=== PATIENT | female | born 1950 | race Caucasian/White ===

== ENCOUNTER 2017-10-17 19:33 | Observation (INO) | payer OTHER ==
[~2017-10-17] VITALS: Ht 152.4 cm; Wt 74.1 kg
[~2017-10-17 19:33] MED LIST: ACIPHEX20 MG PO; ADVAIR 500-501 EACH IH; ADVAIR 500/501 DISK IH; ALPRAZOLAM ER0.5 MG PO; ALPRAZOLAM ER1 MG PO; AMOX TR-K CLV1 EAC4 PO; CITRACAL + D E1 EACH PO; CLARITIN,ALAVAR10 MG PO; CLONAZEPAM0.5 MG PO; FLONASE16 G1 BOTH NARES; FLONASE16 GM NS; GLUCOSAMINE &1 EAC1 PO; LOVASTATIN40 MG PO; MOBIC15 MG PO; MULTIVITAMIN1 EAC2 PO; NAPROSYN500 MG PO; NEXIUM20 MG PO; NEXIUM40 MG PO; PROVENTIL,2.5 MG/3 M IH; PROZAC40 MG PO; RECLAST 55 MG/100 M IV; SYMBICORT60 INHALAT IH; TUMERSAID TABL1 EACH PO; VENTOLIN HFA18 GM IH; VENTOLIN17 GM IH; ZANTAC150 MG PO; ZYRTEC10 M3 PO; [UNRECOGNIZED DRUG - OTHER]
[2017-10-17 20:11] LABS: HEMATOCRIT 38.2 % (36.0-46.0); HEMOGLOBIN 12.8 G/DL (11.9-15.5); MCH 30.1 PG (29.0-34.0); MCHC 33.5 G/DL (30.0-36.0); MCV 89.9 FL (83-99); PLATELET COUNT 216 K/uL (156-360); RBC DIS.WIDTH-SD 42.4 % (39-53); RED BLOOD COUNT 4.25 M/uL (3.80-5.20); WHITE BLOOD COUNT 5.8 K/uL (4.1-10.2)
[2017-10-17 20:20] LABS: PTT 22.7 SEC (25-37)
[2017-10-17 20:22] LABS: ALBUMIN 4.1 g/dL (3.2-4.8); CHLORIDE 108 mEq/L (99-109); POTASSIUM 4.1 mEq/L (3.7-5.4); SODIUM 139 mEq/L (136-147)
[2017-10-17 20:23] LABS: MAGNESIUM 2.3 mg/dL (1.3-2.7)
[2017-10-17 20:25] LABS: GLUCOSE 102 mg/dL (70-99); TOTAL PROTEIN 6.7 g/dL (6.4-8.3)
[2017-10-17 20:27] LABS: TOTAL BILIRUBIN 0.4 mg/dL (0.0-1.0)
[2017-10-17 20:28] LABS: ALKALINE PHOSPHATASE 74 IU/L (3-129)
[2017-10-17 20:29] LABS: CREATININE 1.2 mg/dL (0.6-1.3); GFR ESTIMATE (CALCULATED) 47 mL/min/
[2017-10-17 20:30] LABS: AST (GOT) 22 IU/L (2-34); UREA NITROGEN (BUN) 22 mg/dL (9-23)
[2017-10-17 20:31] LABS: ALT (GPT) 12 IU/L (3-49)
[2017-10-17 20:33] LABS: TROP-I INTERPRETATION NEGATIVE; TROPONIN-I < 0.01 ng/mL (0.0-0.30)
[2017-10-17] MEDS ORDERED: BREO ELLIPTA I1 EACH IH (23:01)
[2017-10-17] MEDS ORDERED: MAGNESIUM250 MG PO (23:05)
[2017-10-18 00:45] VITALS: BP 149/79
[2017-10-18 05:51] LABS: ALBUMIN 3.8 G/DL (3.2-4.8); ALKALINE PHOSPHATASE 59 IU/L (3-129); ALT (GPT) 10 IU/L (3-49); AST (GOT) 19 IU/L (2-34); CHLORIDE 109 MEQ/L (99-109); DIRECT BILIRUBIN 0.1 mg/dL (0.0-0.3); GFR ESTIMATE (CALCULATED) 59 mL/min/; GLUCOSE 92 mg/dL (70-99); POTASSIUM 4.5 MEQ/L (3.7-5.4); SODIUM 140 MEQ/L (136-147); TOTAL BILIRUBIN 0.5 MG/DL (0.0-1.0); TOTAL PROTEIN 5.6 G/DL (6.4-8.3); UREA NITROGEN (BUN) 17 mg/dL (9-23)
[2017-10-18 06:09] LABS: BASOPHIL COUNT 0.1 K/uL (0-0.1); EOSINOPHIL (%) 2.5 % (0-5); EOSINOPHIL COUNT 0.2 K/uL (0-0.3); HEMATOCRIT 37.7 % (36.0-46.0); HEMOGLOBIN 12.8 G/DL (11.9-15.5); IMMATURE GRANULOCYTE (%) 0.3 % (0.0-0.7); LYMPHOCYTE COUNT 1.8 K/uL (1.0-2.8); MCH 30.6 PG (29.0-34.0); MCV 90.2 FL (83-99); MONOCYTE (%) 10.3 % (3-12); MONOCYTE COUNT 0.7 K/uL (0-0.8); NEUTROPHIL (%) 56.9 % (45-76); NEUTROPHIL COUNT 3.6 K/uL (1.8-6.4); PLATELET COUNT 203 K/uL (156-360); RBC DIS.WIDTH-SD 42.7 % (39-53); RED BLOOD COUNT 4.18 M/uL (3.80-5.20); WHITE BLOOD COUNT 6.3 K/uL (4.1-10.2)
[2017-10-18 07:51] VITALS: BP 146/79
[2017-10-18 08:54] LABS: TROP-I INTERPRETATION NEGATIVE; TROPONIN-I < 0.01 ng/mL (0.0-0.30)
[2017-10-18 12:17] VITALS: BP 146/70
== END 2017-10-18 14:08 | disposition home or self-care (01) ==
LOC: EME → EDBD 19:33 → EDOF 22:50 → 4SOUTH 10-18 00:33
PROVIDERS: Emergency Medicine; Internal Medicine
PROC: 3E0234Z Introduction of Serum, Toxoid and Vaccine into Muscle, Percutaneous Approach (ICD-10-PCS; principal; 2017-10-17)
DX: R55 Syncope and collapse (principal); I49.3 Ventricular premature depolarization; E86.0 Dehydration; M19.90 Unspecified osteoarthritis, unspecified site; J45.909 Unspecified asthma, uncomplicated; E78.5 Hyperlipidemia, unspecified; J32.9 Chronic sinusitis, unspecified; G43.909 Migraine, unspecified, not intractable, without status migrainosus; M81.0 Age-related osteoporosis without current pathological fracture; Z87.891 Personal history of nicotine dependence; Z82.49 Family history of ischemic heart disease and other diseases of the circulatory system; Z82.3 Family history of stroke; Z88.5 Allergy status to narcotic agent; Z66 Do not resuscitate; Z23 Encounter for immunization; Z88.6 Allergy status to analgesic agent; Z88.1 Allergy status to other antibiotic agents; Z88.8 Allergy status to other drugs, medicaments and biological substances; Z91.030 Bee allergy status
CPT/HCPCS: 70450; 71045; 80048; 80053; 80076; 83735; 84484; 85025; 85027; 85610; 85730; 93005; 94799; 99281; 99285; G0378; J7030